=== PATIENT | female | born 1965 | race Caucasian/White ===

== ENCOUNTER 2016-12-04 18:21 | Emergency (ER) | payer BC ==
[~2016-12-04] VITALS: Ht 177.8 cm; Wt 88.5 kg
[2016-12-04 18:21] VITALS: BP_SYST 137
--- NOTE | 2016-12-04 18:21 | NUR ---
PRATIBHA Squires, Patient to ER bed 06. Side rails up.
--- NOTE | 2016-12-04 18:32 | NUR ---
Dr. Eli at bedside for evaluation
--- NOTE | 2016-12-04 18:40 | NUR ---
PT C/O TRIPPING WHILE WALKING AND FALLING DOWN. PRESENTS WITH PAIN AND UNABLE TO MOVE RIGHT ARM WITHOUT SEVERE PAIN. PULSES GOOD. NO BRUISING OR SWELLING NOTED. C.O RIGHT KNEE PAIN WELL. WAITING FOR XRAYS.
[2016-12-04] MEDS ORDERED: KETOROLAC TROMETHAMINE 60 MG/2 ML VIAL IM ONE (18:45)
--- NOTE | 2016-12-04 18:50 | NUR ---
MEDICATED WITH TORODOL FOR PAIN.
--- NOTE | 2016-12-04 19:35 | NUR ---
x ray at bedside
[2016-12-04 20:45] VITALS: BP_SYST 125
--- NOTE | 2016-12-04 20:45 | NUR ---
Patient given written and verbal discharge instructions and verbalizes understanding. ER MD DR. LAST discussed with patient the results and treatment provided. Patient in stable condition. ID arm band removed. NO Rx given. Patient educated on pain management and to follow up with PMD. Pain Scale 0/10 Opportunity for questions provided and answered.
== END 2016-12-04 20:45 | disposition home or self-care (01) ==
LOC: SED 18:21
DX: S42.251A Displaced fracture of greater tuberosity of right humerus, initial encounter for closed fracture (principal); S46.911A Strain of unspecified muscle, fascia and tendon at shoulder and upper arm level, right arm, initial encounter; S66.911A Strain of unspecified muscle, fascia and tendon at wrist and hand level, right hand, initial encounter; S80.01XA Contusion of right knee, initial encounter; S50.01XA Contusion of right elbow, initial encounter; W18.39XA Other fall on same level, initial encounter; Y93.89 Activity, other specified; Y99.8 Other external cause status; Y92.410 Unspecified street and highway as the place of occurrence of the external cause
CPT/HCPCS: 73030; 73060; 73070; 73110; 73560; 96372; 99284; J1885